=== PATIENT | female | born 1955 | race Caucasian/White ===

== ENCOUNTER 2016-05-12 09:55 | Observation (INO) | payer OTHER ==
[2016-05-11 10:02] LABS: BASOPHILS 0.3 %; BASOPHILS ABSOLUTE 0.03 10/3/uL (0.0-0.16); EOSINOPHILS 2.1 %; EOSINOPHILS ABSOLUTE 0.19 10/3/uL (0.0-0.53); HEMATOCRIT 40.9 % (36.0-48.0); HEMOGLOBIN 12.7 g/dL (12.0-16.0); IMMATURE GRANULOCYTES 0.1 %; IMMATURE GRANULOCYTES ABSOLUTE 0.01 10/3/uL (0.0-0.11); LYMPHOCYTES 17.7 %; MANUAL DIFF NO %; MEAN CORPUS HGB CONC 31.1 g/dL (32.0-36.0); MEAN CORPUSCULAR HEMOGLOB 25.1 pg (26.0-34.0); MEAN PLATELET VOLUME 11.2 fL (9.2-13.0); MONOCYTES 7.3 %; MONOCYTES ABSOLUTE 0.66 10/3/uL (0.21-1.20); NEUTROPHILS 72.5 %; NEUTROPHILS ABSOLUTE 6.56 10/3/uL (2.02-8.40); PLATELET COUNT 222 10/3/uL (150-400); RBC DISTRIBUTION WIDTH 15.4 % (12.0-16.0); RED CELL COUNT 5.05 10/6/uL (4.0-5.6); WHITE BLOOD CELLS 9.1 10/3/uL (4.5-10.5)
[2016-05-11 10:07] LABS: PARTIAL THROMBO TIME 26.5 SEC (22.5-37.2); PROTIME (NOT ORD) 13.4 SEC (12.0-14.5)
[2016-05-11 10:23] LABS: BUN (BLOOD UREA NITROGEN) 11 MG/DL (6-23); CALCIUM, SERUM 8.6 MG/DL (8.5-10.4); CHLORIDE, SERUM 106 MMOL/L (96-112); CO2 (CARBON DIOXIDE) 26 MMOL/L (24-34); CREATININE 0.83 MG/DL (0.55-1.02); GFR AFRICAN AMERICAN 88 ML/MIN (>=60); GFR NON AFRICAN AMERICAN 76 ML/MIN (>=60); POTASSIUM, SERUM 4.2 MMOL/L (3.5-5.3); SODIUM, SERUM 142 MMOL/L (135-148)
[2016-05-11 10:25] LABS: GLUCOSE, SERUM 145 MG/DL (60-99)
[2016-05-11 10:47] LABS: ASCORBIC ACID (UR NOT ORDER) NEG (NEG); BILIRUBIN, URINE NEGATIVE (NEG); KETONE, URINE NEGATIVE (NEG); LEUKOCYTE ESTERASE(NOT OR TRACE (NEG); WBC (NOT ORDERED) (RFLEX) 35 (0-5)
--- NOTE | ~2016-05-12 | OP ---
Record Of Operation [place] [id number] [facility]. 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 PROCEDURES: 1. Robot-assisted laparoscopic hysterectomy with bilateral salpingo-oophorectomy. CPT code 36702. 2. Intraoperative sentinel lymph node identification. CPT code 14401. 3. Bilateral pelvic and periaortic lymph node dissection. CPT code 91127. 4. Cystoscopy. SURGEON: Winston Dodd MD. ANESTHESIA: General. ESTIMATED BLOOD LOSS: 75 mL. CRYSTALLOID: 1500 mL. URINE OUTPUT: 100 mL. DRAINS: Thomas. FINDINGS: No gross evidence of disease outside of the uterus. There was a fair amount of tumor noted within the endometrial cavity with no evidence of deep myometrial invasion. No clinically enlarged suspicious lymph nodes. PATHOLOGY: Uterus, uterine cervix, bilateral fallopian tubes and ovaries, pelvic washings, bilateral pelvic lymph nodes, bilateral pelvic sentinel lymph nodes, and bilateral periaortic lymph nodes. COMPLICATIONS: None. POSTOPERATIVE PLAN: Extubated to the PACU. PROCEDURE IN DETAIL: After informed consent was signed, the patient was taken to the operating room, and placed in dorsal supine position, where adequate general anesthesia was administered. She was then placed in dorsal lithotomy position in the [facility], and prepped and draped in the usual fashion, and a Thomas catheter was placed. A midline incision was made with a scalpel and carried down to the fascia, which was incised, muscle was , posterior sheath was entered sharply, trocar was placed, and the abdomen was insufflated with CO2 gas. An assistant football coach port was placed in the left upper quadrant, robot trocars were placed in the bilateral upper quadrants and right lateral flank, all under Record Of Operation [place] [address] [facility] [place]. [address] NAME: GAVINO ARREAGA : 51 STATUS : DIS Dang PAT#: [id number] AGE: 60 ADM/REG DATE : 05/12/16 MR#: [id number] REPORT SERV DATE: 05/14/16 DICTATED BY: WINSTON DODD DATE: 05/14/16 REPORT STATUS : Draft TRANSCRIBED BY: TANYA DATE: 05/14/16 direct visualization. ICG was injected into the cervix at 3 and 9 o'clock. The uterus was sounded, cervix was dilated, and the SIMA uterine manipulator was assembled and deployed. The patient was placed in the steep Trendelenburg, and the robot was docked in the usual fashion. Pelvic washings were obtained at the start of the procedure. Bilateral round ligaments were taken with bipolar cautery, transected with monopolar scissors, and the pelvic peritoneum was taken down lateral and parallel to the infundibulopelvic ligament. The pararectal and paravesical spaces were then developed, and using the Firefly scope, bilateral sentinel lymph nodes were identified and removed as separate specimens. Next, the perineum overlying the right common iliac artery was incised and the incision was extended up and over to the aorta to just beneath the ABELARDO. Both ureters were identified and reflected laterally, and lymphatic tissue overlying the left and right side of the aorta and anterior to the vena cava was removed using monopolar scissors, and blunt dissection where appropriate. These lymph nodes were then placed into their respective EndoCatch bags and brought out through the assistant football coach port. Next, the infundibulopelvic ligaments were then taken with bipolar cautery, transected with monopolar scissors. The broad ligament was taken down to the level of the cervix. The posterior colpotomy was made. Next, the vesicouterine peritoneum was incised and the bladder was taken down well beneath the level of the anterior JOVANNY ring, and the anterior colpotomy was made. The uterine vessels were then taken at the cervix with bipolar cautery, and transected with monopolar scissors, and the parametria was reflected off the cervical stroma. The anterior and posterior colpotomies were then connected using monopolar scissors, and the uterus, uterine cervix, and bilateral adnexa were then brought out through the vagina. Next, a complete pelvic lymphadenectomy was performed. Specifically, all lymphatic tissue from the midportion of the common iliac artery superiorly down to the deep circumflex iliac vein inferiorly, from the psoas muscle laterally. The superior vesical artery medially, and the obturator nerve posteriorly were removed using monopolar scissors and blunt dissection where appropriate. These lymph nodes were then placed in the respective EndoCatch bags and brought out through the vagina. The pelvis was irrigated with copious amounts of irrigation fluid. Excellent hemostasis was noted. The vagina was then closed with 0 180 V-Loc suture and a running stitch. All instruments were removed from the abdomen, the robot was undocked. The CO2 gas was evacuated. The Thomas catheter was removed and the cystoscope was placed through the urethra, and the bladder was distended with appropriate media. Bilateral brisk ureteral jets were noted suggesting bilateral ureteral patency. The cystoscope was removed and the bladder was drained. CO2 gas was then reduced into the abdomen, and using the laparoscope, the pelvis and periaortic region were examined, and found to be hemostatic. The laparoscope and all trocars were then removed from the abdomen. The fascia from the supraumbilical incision and the left upper quadrant incision was closed with 0 Vicryl suture. The skin from all trocar sites was closed with 4-0 Monocryl and Dermabond. The patient tolerated the procedure well, was awakened, extubated, and sent to the PACU in stable condition after being placed in dorsal supine position. Appropriate antibiotics were given prior to the start of the procedure. She tolerated the procedure well. TB/MODL Winston Dodd, Record Of Operation [address] [address] NAME: GAVINO ARREAGA : 51 STATUS : DIS Dang PAT#: [id number] AGE: 60 ADM/REG DATE : 05/12/16 MR#: [id number] REPORT SERV DATE: 05/14/16 DICTATED BY: WINSTON DODD DATE: 05/14/16 REPORT STATUS : Draft TRANSCRIBED BY: MODL DATE: 05/14/16 / [id number] CC: MD ABEL Avila
[~2016-05-12 09:55] MED LIST: ALBUTEROL INH; GLUCPH PO; PRIN20 PO; VENTOLIN HFA INH
[2016-05-13 05:16] LABS: BASOPHILS 0.1 %; BASOPHILS ABSOLUTE 0.02 10/3/uL (0.0-0.16); EOSINOPHILS 0 %; HEMATOCRIT 37.6 % (36.0-48.0); HEMOGLOBIN 11.4 g/dL (12.0-16.0); IMMATURE GRANULOCYTES 0.2 %; IMMATURE GRANULOCYTES ABSOLUTE 0.04 10/3/uL (0.0-0.11); LYMPHOCYTES 9.8 %; LYMPHOCYTES ABSOLUTE 1.63 10/3/uL (0.67-4.30); MEAN CORPUS HGB CONC 30.3 g/dL (32.0-36.0); MEAN CORPUSCULAR HEMOGLOB 24.9 pg (26.0-34.0); MEAN CORPUSCULAR VOLUME 82.3 fL (80-100); MEAN PLATELET VOLUME 11.4 fL (9.2-13.0); MONOCYTES 6.4 %; MONOCYTES ABSOLUTE 1.06 10/3/uL (0.21-1.20); NEUTROPHILS 83.5 %; NEUTROPHILS ABSOLUTE 13.85 10/3/uL (2.02-8.40); PLATELET COUNT 202 10/3/uL (150-400); RBC DISTRIBUTION WIDTH 15.3 % (12.0-16.0); RED CELL COUNT 4.57 10/6/uL (4.0-5.6)
[2016-05-13 05:19] LABS: BUN (BLOOD UREA NITROGEN) 12 MG/DL (6-23); CALCIUM, SERUM 7.9 MG/DL (8.5-10.4); CHLORIDE, SERUM 106 MMOL/L (96-112); CO2 (CARBON DIOXIDE) 27 MMOL/L (24-34); CREATININE 1.05 MG/DL (0.55-1.02); GFR AFRICAN AMERICAN 66 ML/MIN (>=60); GFR NON AFRICAN AMERICAN 57 ML/MIN (>=60); MANUAL DIFF NO %; POTASSIUM, SERUM 4.6 MMOL/L (3.5-5.3); SODIUM, SERUM 141 MMOL/L (135-148); WHITE BLOOD CELLS 16.6 10/3/uL (4.5-10.5)
[2016-05-13 05:23] LABS: GLUCOSE, SERUM 206 MG/DL (60-99)
[2016-05-13] MEDS ORDERED: PCET PO (08:50)
[2016-05-13] MEDS ORDERED: COMP10B PO (08:51)
== END 2016-05-13 11:51 | disposition home or self-care (01) ==
LOC: SDC 09:55 → 4SO 19:53
PROVIDERS: Obstetrics & Gynecology Gynecology
PROC: 0UT24ZZ Resection of Bilateral Ovaries, Percutaneous Endoscopic Approach (ICD-10-PCS; 2016-05-12)
PROC: 0UT74ZZ Resection of Bilateral Fallopian Tubes, Percutaneous Endoscopic Approach (ICD-10-PCS; 2016-05-12)
PROC: 07BC0ZX Excision of Pelvis Lymphatic, Open Approach, Diagnostic (ICD-10-PCS; 2016-05-12)
PROC: 0UT94ZZ Resection of Uterus, Percutaneous Endoscopic Approach (ICD-10-PCS; principal; 2016-05-12 10:00)
PROC: 0UTC4ZZ Resection of Cervix, Percutaneous Endoscopic Approach (ICD-10-PCS; 2016-05-12 10:00)
DX: C54.1 Malignant neoplasm of endometrium (principal); E66.9 Obesity, unspecified; J44.9 Chronic obstructive pulmonary disease, unspecified; J45.909 Unspecified asthma, uncomplicated; F17.210 Nicotine dependence, cigarettes, uncomplicated; E11.9 Type 2 diabetes mellitus without complications; E78.00 Pure hypercholesterolemia, unspecified; I10 Essential (primary) hypertension; Z86.73 Personal history of transient ischemic attack (TIA), and cerebral infarction without residual deficits; Z90.49 Acquired absence of other specified parts of digestive tract; Z98.51 Tubal ligation status; Z98.890 Other specified postprocedural states; Z87.891 Personal history of nicotine dependence; Z79.899 Other long term (current) drug therapy
CPT/HCPCS: 36415; 71020; 80048; 81001; 82962; 85025; 85610; 85730; 86850; 86900; 86901; 87077; 87086; 87186; 88112; 88305; 88307; 88309; 88341; 88342; 93005; 96374; 96376; A9270-GY; G0378; J0694; J2250; J2405; J2710; J2795; J3010